=== PATIENT | female | born 1995 | race Hispanic/Latino ===

== ENCOUNTER 2016-10-25 19:33 | Emergency (ER) | payer OTHER ==
[~2016-10-25] VITALS: Ht 157.5 cm; Wt 57.8 kg
[~2016-10-25 19:33] MED LIST: CIPRO500 MG PO; FEROSUL325 MG PO; MAGNESIUM OXID400 MG PO; MYFORTIC360 MG PO; OMEPRAZOLE20 M2 PO; PERCOCET 5/31 TABLET PO; PREDNISOLONE5 MG PO; PROGRAF1 MG PO; TYLENOL EXTRA500 MG PO; VITAMIN D400 UNIT PO; ZOFRAN4 MG PO
[2016-10-25] MEDS ORDERED: FLONASE16 G1 BOTH NARES (20:32)
[2016-10-25] MEDS ORDERED: CEFDINIR300 MG PO (20:32)
[2016-10-25] MEDS ORDERED: PREDNISONE20 MG PO (20:34)
[2016-10-25 21:25] VITALS: BP 123/76
== END 2016-10-25 21:27 | disposition home or self-care (01) ==
LOC: EME 19:33
DX: H66.92 Otitis media, unspecified, left ear (principal); J32.9 Chronic sinusitis, unspecified; J40 Bronchitis, not specified as acute or chronic; J45.909 Unspecified asthma, uncomplicated; Z94.0 Kidney transplant status
CPT/HCPCS: 94640; 94664; 99281; 99285; J7512

== ENCOUNTER 2016-12-06 19:20 | Emergency (ER) | payer OTHER ==
[~2016-12-06] VITALS: Ht 157.5 cm; Wt 55.8 kg
[~2016-12-06 19:20] MED LIST changes: +CEFDINIR300 MG PO; +FLONASE16 G1 BOTH NARES; +PREDNISONE20 MG PO
[2016-12-06] MEDS ORDERED: PREDNISONE5 MG PO (19:58)
[2016-12-06] MEDS ORDERED: MAGNESIUM400 M1 PO (19:59)
[2016-12-06] MEDS ORDERED: MYCOPHENOLIC A360 MG PO (20:00)
[2016-12-06] MEDS ORDERED: TACROLIMUS ANHYD1 MG PO ×2 (20:01)
[2016-12-06] MEDS ORDERED: AMOXICILLIN875 MG PO (20:02)
[2016-12-06 20:06] LABS: HEMATOCRIT 37.1 % (36.0-46.0); MCH 28.6 PG (29.0-34.0); MCHC 33.4 G/DL (30.0-36.0); MCV 85.5 FL (83-99); MEAN PLAT.VOLUME 9.9 uM^3 (9.5-12.4); PLATELET COUNT 252 K/uL (156-360); RBC DIS.WIDTH-CV 12.4 % (11.8-14.6); RBC DIS.WIDTH-SD 38.6 % (39-53); RED BLOOD COUNT 4.34 M/uL (3.80-5.20)
[2016-12-06 20:07] LABS: WHITE BLOOD COUNT 12.3 K/uL (4.1-10.2)
[2016-12-06 20:16] LABS: CHLORIDE 104 mEq/L (99-109); POTASSIUM 3.8 mEq/L (3.7-5.4); SODIUM 137 mEq/L (136-147)
[2016-12-06 20:18] LABS: GLUCOSE 105 mg/dL (70-99)
[2016-12-06 20:19] LABS: ANION GAP 10 MEQ/L (2-14)
[2016-12-06 20:22] LABS: GFR ESTIMATE (CALCULATED) > 59 mL/min/
[2016-12-06 20:23] LABS: UREA NITROGEN (BUN) 16 mg/dL (9-23)
[2016-12-06] MEDS ORDERED: AUGMENTIN875 MG PO (21:24)
[2016-12-06 21:35] VITALS: BP 109/76
== END 2016-12-06 21:36 | disposition home or self-care (01) ==
LOC: EME 19:20
PROVIDERS: Physician Assistant
DX: T81.4XXA Infection following a procedure, initial encounter (principal); K04.7 Periapical abscess without sinus; G89.18 Other acute postprocedural pain; Z98.818 Other dental procedure status; Z94.0 Kidney transplant status; Z79.52 Long term (current) use of systemic steroids
CPT/HCPCS: 70486; 80048; 85027; 87040; 99281; 99284; J0295; J7030; J7050

== ENCOUNTER 2017-04-30 20:44 | Inpatient (IN) | payer BC ==
[~2017-04-30] VITALS: Ht 167.6 cm; Wt 65.5 kg
[~2017-04-30 20:44] MED LIST changes: +AMOXICILLIN875 MG PO; +AUGMENTIN875 MG PO; +MAGNESIUM400 M1 PO; +MYCOPHENOLIC A360 MG PO; +PREDNISONE5 MG PO; +TACROLIMUS ANHYD1 MG PO
[2017-04-30 21:42] LABS: HEMATOCRIT 33.5 % (36.0-46.0); MCH 28.5 PG (29.0-34.0); MCV 83.8 FL (83-99); MEAN PLAT.VOLUME 10.3 uM^3 (9.5-12.4); PLATELET COUNT 237 K/uL (156-360); RBC DIS.WIDTH-CV 13.5 % (11.8-14.6); RBC DIS.WIDTH-SD 41.4 % (39-53); WHITE BLOOD COUNT 10.8 K/uL (4.1-10.2)
[2017-04-30 21:58] LABS: LIPASE 37 U/L (1.0-51.0)
[2017-04-30 22:05] LABS: QUANTITATIVE HCG < 4.0 MIU/ML
[2017-04-30 23:47] LABS: CHLORIDE 108 mEq/L (99-109); POTASSIUM 3.9 mEq/L (3.7-5.4); SODIUM 138 mEq/L (136-147)
[2017-04-30 23:49] LABS: GLUCOSE 96 mg/dL (70-99)
[2017-04-30 23:50] LABS: ANION GAP 12 MEQ/L (2-14)
[2017-04-30 23:51] LABS: TOTAL BILIRUBIN 0.5 mg/dL (0.0-1.0)
[2017-04-30 23:52] LABS: ALKALINE PHOSPHATASE 60 IU/L (3-129)
[2017-04-30 23:53] LABS: GFR ESTIMATE (CALCULATED) 50 mL/min/
[2017-04-30 23:54] LABS: UREA NITROGEN (BUN) 26 mg/dL (9-23)
[2017-05-01 00:16] LABS: INFLUENZA A VIRAL ANTIGEN NEGATIVE; INFLUENZA B VIRAL ANTIGEN NEGATIVE
[2017-05-01 01:56] LABS: ADD MIUA? YES; BILIRUBIN NEGATIVE; BLOOD NEGATIVE; COLOR YELLOW ((YELLOW)); GLUCOSE (STRIP) NEGATIVE; KETONES NEGATIVE; LEUKOCYTES LARGE; NITRITE NEGATIVE; PROTEIN (STRIP) NEGATIVE; SPECIFIC GRAVITY 1.017 (1.000-1.030); UROBILINOGEN 0.2 MG/DL (0.2-1.0)
[2017-05-01 02:06] LABS: BACTERIA NONE SEEN /HPF; EPITHELIAL CELLS RARE /HPF; MUCUS TRACE /LPF; UCUL ADDED? YES; WHITE BLOOD CELLS TNTC /HPF (0-5)
[2017-05-01 06:11] VITALS: BP 110/68
[2017-05-01 08:15] VITALS: BP 100/53
[2017-05-01 09:01] LABS: EOSINOPHIL (%) 0.1 % (0-5); IMMATURE GRANULOCYTE (%) 0.2 % (0.0-0.7); INSTRUMENT ABS NEUTROPHIL CT 7.6 K/uL; LYMPHOCYTE COUNT 0.9 K/uL (1.0-2.8); MCH 27.7 PG (29.0-34.0); MCHC 32.6 G/DL (30.0-36.0); MCV 85.2 FL (83-99); MONOCYTE (%) 4.1 % (3-12); MONOCYTE COUNT 0.4 K/uL (0-0.8); NEUTROPHIL (%) 85.5 % (45-76); NEUTROPHIL COUNT 7.6 K/uL (1.8-6.4); PLATELET COUNT 174 K/uL (156-360); RBC DIS.WIDTH-CV 13.5 % (11.8-14.6); RBC DIS.WIDTH-SD 42.8 % (39-53); RED BLOOD COUNT 3.64 M/uL (3.80-5.20); WHITE BLOOD COUNT 8.8 K/uL (4.1-10.2)
[2017-05-01 09:28] LABS: ANION GAP 9 MEQ/L (2-14); CHLORIDE 110 MEQ/L (99-109); GFR ESTIMATE (CALCULATED) 55 mL/min/; GLUCOSE 128 mg/dL (70-99); POTASSIUM 3.8 MEQ/L (3.7-5.4); SAMPLE HEMOLYSIS CHECK 0; SAMPLE ICTERIC CHECK 0; SAMPLE LIPEMIA CHECK 0; SODIUM 137 MEQ/L (136-147); UREA NITROGEN (BUN) 21 mg/dL (9-23)
[2017-05-01 12:00] VITALS: BP 107/68
[2017-05-01 15:10] VITALS: BP 101/59
[2017-05-01 19:38] VITALS: BP 112/71
[2017-05-02] VITALS (7 sets, daily range): BP systolic 109–119; BP diastolic 60–98
[2017-05-02 05:28] LABS: EOSINOPHIL COUNT 0.1 K/uL (0-0.3); IMMATURE GRANULOCYTE (%) 0.4 % (0.0-0.7); INSTRUMENT ABS NEUTROPHIL CT 5.9 K/uL; MCH 27.4 PG (29.0-34.0); MCHC 32.1 G/DL (30.0-36.0); MCV 85.1 FL (83-99); MEAN PLAT.VOLUME 9.9 uM^3 (9.5-12.4); MONOCYTE (%) 12.6 % (3-12); MONOCYTE COUNT 1.3 K/uL (0-0.8); NEUTROPHIL (%) 56.6 % (45-76); NEUTROPHIL COUNT 5.9 K/uL (1.8-6.4); PLATELET COUNT 170 K/uL (156-360); RBC DIS.WIDTH-CV 13.6 % (11.8-14.6); RBC DIS.WIDTH-SD 42.7 % (39-53); RED BLOOD COUNT 3.29 M/uL (3.80-5.20); WHITE BLOOD COUNT 10.5 K/uL (4.1-10.2)
[2017-05-02 05:49] LABS: ANION GAP 8 MEQ/L (2-14); CHLORIDE 111 MEQ/L (99-109); GFR ESTIMATE (CALCULATED) > 59 mL/min/; GLUCOSE 99 mg/dL (70-99); POTASSIUM 3.6 MEQ/L (3.7-5.4); SAMPLE HEMOLYSIS CHECK 0; SAMPLE ICTERIC CHECK 0; SAMPLE LIPEMIA CHECK 0; SODIUM 139 MEQ/L (136-147); UREA NITROGEN (BUN) 17 mg/dL (9-23)
[2017-05-02 23:21] LABS: ADD MIUA? YES; BILIRUBIN NEGATIVE; BLOOD LARGE; COLOR YELLOW ((YELLOW)); GLUCOSE (STRIP) NEGATIVE; KETONES NEGATIVE; LEUKOCYTES NEGATIVE; NITRITE NEGATIVE; PROTEIN (STRIP) NEGATIVE; SPECIFIC GRAVITY 1.014 (1.000-1.030); UROBILINOGEN 0.2 MG/DL (0.2-1.0)
[2017-05-02 23:23] LABS: BACTERIA RARE /HPF; EPITHELIAL CELLS RARE /HPF; MUCUS TRACE /LPF; RED BLOOD CELLS TNTC /HPF (0-5); UCUL ADDED? YES; WHITE BLOOD CELLS 0-5 /HPF (0-5)
[2017-05-03 03:23] VITALS: BP 115/76
[2017-05-03 05:54] LABS: BASOPHIL COUNT 0.1 K/uL (0-0.1); EOSINOPHIL (%) 2.4 % (0-5); EOSINOPHIL COUNT 0.2 K/uL (0-0.3); HEMATOCRIT 28.6 % (36.0-46.0); IMMATURE GRANULOCYTE (%) 0.2 % (0.0-0.7); INSTRUMENT ABS NEUTROPHIL CT 5.5 K/uL; MCH 27.6 PG (29.0-34.0); MCHC 32.5 G/DL (30.0-36.0); MCV 84.9 FL (83-99); MEAN PLAT.VOLUME 9.9 uM^3 (9.5-12.4); MONOCYTE (%) 8.6 % (3-12); MONOCYTE COUNT 0.8 K/uL (0-0.8); NEUTROPHIL (%) 56.9 % (45-76); NEUTROPHIL COUNT 5.5 K/uL (1.8-6.4); PLATELET COUNT 205 K/uL (156-360); RBC DIS.WIDTH-CV 13.6 % (11.8-14.6); RBC DIS.WIDTH-SD 42.6 % (39-53); RED BLOOD COUNT 3.37 M/uL (3.80-5.20); WHITE BLOOD COUNT 9.6 K/uL (4.1-10.2)
[2017-05-03 06:17] LABS: ANION GAP 7 MEQ/L (2-14); CHLORIDE 109 MEQ/L (99-109); GFR ESTIMATE (CALCULATED) > 59 mL/min/; GLUCOSE 96 mg/dL (70-99); POTASSIUM 3.9 MEQ/L (3.7-5.4); SAMPLE HEMOLYSIS CHECK 0; SAMPLE ICTERIC CHECK 0; SAMPLE LIPEMIA CHECK 0; SODIUM 136 MEQ/L (136-147); UREA NITROGEN (BUN) 15 mg/dL (9-23)
[2017-05-03 07:12] VITALS: BP 113/73
[2017-05-03] MEDS ORDERED: CIPRO500 MG PO (12:00)
== END 2017-05-03 13:16 | disposition home or self-care (01) | DRG 872 ==
LOC: EME 20:44 → CANRESERV 05-01 05:18 → ENRESERV 05-01 05:18 → EDOF 05-01 05:21 → ENRESERV 05-01 05:21 → 4EAST 05-01 06:03 → ENRESERV 05-02 10:13 → 2EASTP 05-02 14:40
PROVIDERS: Hospitalist; Internal Medicine; Nurse Practitioner Family
DX: A41.9 Sepsis, unspecified organism (principal); N39.0 Urinary tract infection, site not specified; N17.9 Acute kidney failure, unspecified; Z94.0 Kidney transplant status
CPT/HCPCS: 71020; 76705; 80048; 80053; 80197 90; 81003; 83605; 83690; 84702; 85025; 85027; 87040; 87086; 87502; 87651 90; 99281; 99285; J0692; J1644; J1720; J1956; J7030; J7050; J7120; J7507; J7512; J7518

== ENCOUNTER 2017-09-26 22:12 | Inpatient (IN) | payer BC ==
[~2017-09-26] VITALS: Ht 157.5 cm; Wt 63.0 kg
[2017-09-26 22:44] LABS: APPEARANCE CLEAR ((CLEAR)); BILIRUBIN NEGATIVE; BLOOD NEGATIVE; COLOR STRAW ((YELLOW)); GLUCOSE (STRIP) NEGATIVE; KETONES 5; LEUKOCYTES NEGATIVE; NITRITE NEGATIVE; PROTEIN (STRIP) 100; SPECIFIC GRAVITY 1.008 (1.000-1.030); UROBILINOGEN 0.2 MG/DL (0.2-1.0)
[2017-09-26 22:47] LABS: HEMATOCRIT 28.4 % (36.0-46.0); HEMOGLOBIN 9.5 G/DL (11.9-15.5); MCH 28.6 PG (29.0-34.0); MCHC 33.5 G/DL (30.0-36.0); MCV 85.5 FL (83-99); PLATELET COUNT 234 K/uL (156-360); RBC DIS.WIDTH-CV 13.1 % (11.8-14.6); RBC DIS.WIDTH-SD 40.5 % (39-53); RED BLOOD COUNT 3.32 M/uL (3.80-5.20); WHITE BLOOD COUNT 7.1 K/uL (4.1-10.2)
[2017-09-26 22:49] LABS: BACTERIA RARE /HPF; EPITHELIAL CELLS 1+ /HPF; MUCUS NONE SEEN /LPF; RED BLOOD CELLS 0-5 /HPF (0-5); UCUL ADDED? YES
[2017-09-26 22:59] LABS: CHLORIDE 112 mEq/L (99-109); POTASSIUM 4.5 mEq/L (3.7-5.4); SODIUM 137 mEq/L (136-147)
[2017-09-26 23:01] LABS: GLUCOSE 83 mg/dL (70-99); TOTAL PROTEIN 7.5 g/dL (6.4-8.3)
[2017-09-26 23:03] LABS: TOTAL BILIRUBIN 0.4 mg/dL (0.0-1.0)
[2017-09-26 23:05] LABS: ALKALINE PHOSPHATASE 59 IU/L (3-129); CREATININE 5.1 mg/dL (0.6-1.3); GFR ESTIMATE (CALCULATED) 11 mL/min/
[2017-09-26 23:06] LABS: UREA NITROGEN (BUN) 63 mg/dL (9-23)
[2017-09-26 23:07] LABS: AST (GOT) 15 IU/L (2-34)
[2017-09-26 23:08] LABS: ALT (GPT) 9 IU/L (3-49)
[2017-09-26 23:13] LABS: QUANTITATIVE HCG < 4.0 MIU/ML
[2017-09-27] MEDS ORDERED: RANITIDINE HCL150 MG PO (00:01)
[2017-09-27 03:13] VITALS: BP 131/80
[2017-09-27 07:33] LABS: ALBUMIN 3.4 G/DL (3.2-4.8); CHLORIDE 111 MEQ/L (99-109); CREATININE 5.1 MG/DL (0.6-1.3); GFR ESTIMATE (CALCULATED) 11 mL/min/; GLUCOSE 83 mg/dL (70-99); MAGNESIUM 1.9 mg/dl (1.3-2.7); PHOSPHORUS 6.2 mg/dL (2.5-4.9); POTASSIUM 4.3 MEQ/L (3.7-5.4); SODIUM 137 MEQ/L (136-147); UREA NITROGEN (BUN) 63 mg/dL (9-23)
[2017-09-27 08:33] VITALS: BP 119/79
[2017-09-27 15:56] VITALS: BP 110/70
[2017-09-27 19:33] VITALS: BP 114/68
[2017-09-27 23:46] VITALS: BP 114/72
[2017-09-28 03:23] VITALS: BP 111/70
[2017-09-28 06:59] LABS: BASOPHIL (%) 0.9 % (0-1); BASOPHIL COUNT 0.1 K/uL (0-0.1); EOSINOPHIL (%) 3.6 % (0-5); EOSINOPHIL COUNT 0.3 K/uL (0-0.3); HEMOGLOBIN 8.1 G/DL (11.9-15.5); IMMATURE GRANULOCYTE (%) 0.1 % (0.0-0.7); LYMPHOCYTE (%) 37.5 % (15-42); LYMPHOCYTE COUNT 2.6 K/uL (1.0-2.8); MCH 27.7 PG (29.0-34.0); MCHC 32.4 G/DL (30.0-36.0); MCV 85.6 FL (83-99); MONOCYTE (%) 8.2 % (3-12); MONOCYTE COUNT 0.6 K/uL (0-0.8); NEUTROPHIL (%) 49.7 % (45-76); NEUTROPHIL COUNT 3.4 K/uL (1.8-6.4); PLATELET COUNT 219 K/uL (156-360); RBC DIS.WIDTH-CV 13.1 % (11.8-14.6); RBC DIS.WIDTH-SD 41.1 % (39-53); RED BLOOD COUNT 2.92 M/uL (3.80-5.20); WHITE BLOOD COUNT 6.9 K/uL (4.1-10.2)
[2017-09-28 07:20] VITALS: BP 123/80
[2017-09-28 07:20] LABS: ALBUMIN 3.3 G/DL (3.2-4.8); CHLORIDE 115 MEQ/L (99-109); CREATININE 5.8 MG/DL (0.6-1.3); GFR ESTIMATE (CALCULATED) 10 mL/min/; GLUCOSE 87 mg/dL (70-99); PHOSPHORUS 4.9 mg/dL (2.5-4.9); POTASSIUM 4.4 MEQ/L (3.7-5.4); SODIUM 140 MEQ/L (136-147); UREA NITROGEN (BUN) 68 mg/dL (9-23)
[2017-09-28 09:02] LABS: IMM.RETIC FRACTION 3.3 % (3-19); RETIC HGB EQUIVALENT 30.7 (28-36); RETICULOCYTE COUNT 0.5 % (0.5-1.8)
[2017-09-28 09:05] LABS: FERRITIN 61 NG/ML (10-291)
[2017-09-28 10:48] LABS: IRON 30 MCG/DL (35-150); TRANSFERRIN (TIBC) 160.7 mg/dL (215-380); TRANSFERRIN SATUR. 19 % (20-55)
[2017-09-28 11:30] VITALS: BP 133/84
[2017-09-28 12:21] LABS: FOLIC ACID (FOLATE) 9.7 NG/ML (5.0-22.0)
[2017-09-28 15:31] VITALS: BP 132/74
[2017-09-28 19:17] VITALS: BP 132/84
[2017-09-29] VITALS: BP 126/80
[2017-09-29 03:55] VITALS: BP 126/78
[2017-09-29 07:35] VITALS: BP 134/89
[2017-09-29 08:12] LABS: BASOPHIL (%) 1.3 % (0-1); BASOPHIL COUNT 0.1 K/uL (0-0.1); EOSINOPHIL (%) 3.8 % (0-5); EOSINOPHIL COUNT 0.2 K/uL (0-0.3); HEMATOCRIT 23.5 % (36.0-46.0); HEMOGLOBIN 7.9 G/DL (11.9-15.5); IMMATURE GRANULOCYTE (%) 0.2 % (0.0-0.7); LYMPHOCYTE (%) 45.6 % (15-42); LYMPHOCYTE COUNT 2.8 K/uL (1.0-2.8); MCH 27.8 PG (29.0-34.0); MCHC 33.6 G/DL (30.0-36.0); MCV 82.7 FL (83-99); MONOCYTE (%) 10.1 % (3-12); MONOCYTE COUNT 0.6 K/uL (0-0.8); NEUTROPHIL COUNT 2.4 K/uL (1.8-6.4); PLATELET COUNT 215 K/uL (156-360); RBC DIS.WIDTH-SD 39.4 % (39-53); RED BLOOD COUNT 2.84 M/uL (3.80-5.20)
[2017-09-29 08:32] LABS: ALBUMIN 3.3 G/DL (3.2-4.8); CHLORIDE 109 MEQ/L (99-109); CREATININE 5.5 MG/DL (0.6-1.3); GFR ESTIMATE (CALCULATED) 10 mL/min/; GLUCOSE 99 mg/dL (70-99); PHOSPHORUS 5.1 mg/dL (2.5-4.9); SODIUM 138 MEQ/L (136-147); UREA NITROGEN (BUN) 67 mg/dL (9-23)
[2017-09-29 08:35] LABS: POTASSIUM 3.3 MEQ/L (3.7-5.4)
[2017-09-29 15:47] VITALS: BP 141/86
[2017-09-30 00:39] VITALS: BP 136/94
[2017-09-30 06:18] LABS: BASOPHIL (%) 0.9 % (0-1); BASOPHIL COUNT 0.1 K/uL (0-0.1); EOSINOPHIL (%) 2.6 % (0-5); EOSINOPHIL COUNT 0.2 K/uL (0-0.3); HEMATOCRIT 24.1 % (36.0-46.0); HEMOGLOBIN 8.2 G/DL (11.9-15.5); IMMATURE GRANULOCYTE (%) 0.3 % (0.0-0.7); LYMPHOCYTE (%) 45.8 % (15-42); LYMPHOCYTE COUNT 3.1 K/uL (1.0-2.8); MCH 28.2 PG (29.0-34.0); MCV 82.8 FL (83-99); MONOCYTE COUNT 0.6 K/uL (0-0.8); NEUTROPHIL (%) 41.4 % (45-76); NEUTROPHIL COUNT 2.8 K/uL (1.8-6.4); PLATELET COUNT 226 K/uL (156-360); RBC DIS.WIDTH-SD 39.2 % (39-53); RED BLOOD COUNT 2.91 M/uL (3.80-5.20); WHITE BLOOD COUNT 6.7 K/uL (4.1-10.2)
[2017-09-30 06:53] LABS: APPEARANCE SL.HAZY ((CLEAR)); BILIRUBIN NEGATIVE; BLOOD NEGATIVE; COLOR STRAW ((YELLOW)); GLUCOSE (STRIP) NEGATIVE; KETONES NEGATIVE; LEUKOCYTES SMALL; NITRITE NEGATIVE; PROTEIN (STRIP) 30; SPECIFIC GRAVITY 1.005 (1.000-1.030); UROBILINOGEN 0.2 MG/DL (0.2-1.0)
[2017-09-30 06:54] LABS: ALBUMIN 3.1 G/DL (3.2-4.8); CHLORIDE 102 MEQ/L (99-109); CREATININE 6.3 MG/DL (0.6-1.3); GFR ESTIMATE (CALCULATED) 9 mL/min/; GLUCOSE 87 mg/dL (70-99); PHOSPHORUS 5.2 mg/dL (2.5-4.9); POTASSIUM 3.4 MEQ/L (3.7-5.4); SODIUM 142 MEQ/L (136-147); UREA NITROGEN (BUN) 67 mg/dL (9-23)
[2017-09-30 07:05] VITALS: BP 136/83
[2017-09-30 07:12] LABS: BACTERIA RARE /HPF; EPITHELIAL CELLS 1+ /HPF; MUCUS NONE SEEN /LPF; RED BLOOD CELLS 0-5 /HPF (0-5); WHITE BLOOD CELLS 15-20 /HPF (0-5)
[2017-09-30 09:33] LABS: UR CREATININE CONCENTRATION 45.1 MG/DL
[2017-09-30 11:38] LABS: STOOL OCCULT BLD 1ST SPECIMEN NEGATIVE
[2017-09-30 16:34] VITALS: BP 149/92
[2017-09-30 23:32] VITALS: BP 125/87
[2017-10-01 06:22] LABS: HEMATOCRIT 27.5 % (36.0-46.0); MCH 27.4 PG (29.0-34.0); MCHC 32.7 G/DL (30.0-36.0); MCV 83.6 FL (83-99); PLATELET COUNT 263 K/uL (156-360); RBC DIS.WIDTH-CV 12.6 % (11.8-14.6); RBC DIS.WIDTH-SD 38.6 % (39-53); RED BLOOD COUNT 3.29 M/uL (3.80-5.20); WHITE BLOOD COUNT 5.5 K/uL (4.1-10.2)
[2017-10-01 06:53] LABS: CHLORIDE 104 MEQ/L (99-109); CREATININE 5.9 MG/DL (0.6-1.3); GFR ESTIMATE (CALCULATED) 10 mL/min/; SODIUM 138 MEQ/L (136-147); UREA NITROGEN (BUN) 60 mg/dL (9-23)
[2017-10-01 06:56] LABS: GLUCOSE 110 mg/dL (70-99); POTASSIUM 4.4 MEQ/L (3.7-5.4)
[2017-10-01 09:23] VITALS: BP 130/80
[2017-10-01 15:40] VITALS: BP 130/72
== END 2017-10-01 18:54 | disposition short-term general hospital (02) | DRG 699 ==
LOC: EME 22:12 → 2EAST 09-27 01:25 → EDOF 09-27 01:25 → ENRESERV 09-27 01:26 → 2EAST 09-27 02:47
PROVIDERS: Family Medicine; Hospitalist; Internal Medicine; Internal Medicine Nephrology
DX: T86.12 Kidney transplant failure (principal); N17.9 Acute kidney failure, unspecified; N13.30 Unspecified hydronephrosis; Z94.0 Kidney transplant status; R55 Syncope and collapse; E87.2 Acidosis; E87.6 Hypokalemia; D64.9 Anemia, unspecified; Z79.52 Long term (current) use of systemic steroids; Y83.0 Surgical operation with transplant of whole organ as the cause of abnormal reaction of the patient, or of later complication, without mention of misadventure at the time of the procedure
CPT/HCPCS: 76776; 80048; 80053; 80069; 80197 90; 81003; 82272; 82330; 82570; 82607; 82728; 82746; 83540; 83735; 83935; 84156; 84300; 84466; 84702; 85025; 85027; 85046; 87086; 93005; 99281; 99285; J1644; J1756; J2920; J7030; J7050; J7070; J7507; J7512; J7518

== ENCOUNTER 2017-10-28 15:23 | Inpatient (IN) | payer BC ==
[~2017-10-28] VITALS: Ht 157.5 cm; Wt 59.7 kg
[~2017-10-28 15:23] MED LIST changes: +DELTASONE20 M1 PO; -PREDNISONE5 MG PO; +RANITIDINE HCL150 MG PO
[2017-10-28 15:56] LABS: HEMATOCRIT 24.3 % (36.0-46.0); HEMOGLOBIN 7.9 G/DL (11.9-15.5); MCHC 32.5 G/DL (30.0-36.0); MCV 86.2 FL (83-99); PLATELET COUNT 216 K/uL (156-360); RBC DIS.WIDTH-CV 14.2 % (11.8-14.6); RBC DIS.WIDTH-SD 43.5 % (39-53); RED BLOOD COUNT 2.82 M/uL (3.80-5.20); WHITE BLOOD COUNT 7.4 K/uL (4.1-10.2)
[2017-10-28 16:05] LABS: ALBUMIN 4.5 g/dL (3.2-4.8)
[2017-10-28 16:06] LABS: CHLORIDE 114 mEq/L (99-109); POTASSIUM 4.7 mEq/L (3.7-5.4); SODIUM 137 mEq/L (136-147)
[2017-10-28 16:08] LABS: GLUCOSE 124 mg/dL (70-99); TOTAL PROTEIN 7.3 g/dL (6.4-8.3)
[2017-10-28 16:10] LABS: TOTAL BILIRUBIN 0.3 mg/dL (0.0-1.0)
[2017-10-28 16:11] LABS: ALKALINE PHOSPHATASE 55 IU/L (3-129)
[2017-10-28 16:12] LABS: CREATININE 4.9 mg/dL (0.6-1.3); GFR ESTIMATE (CALCULATED) 12 mL/min/
[2017-10-28 16:13] LABS: AST (GOT) 11 IU/L (2-34); UREA NITROGEN (BUN) 66 mg/dL (9-23)
[2017-10-28 16:15] LABS: ALT (GPT) 9 IU/L (3-49)
[2017-10-28 16:21] LABS: QUANTITATIVE HCG < 4.0 MIU/ML
[2017-10-28 16:30] LABS: APPEARANCE SL.HAZY ((CLEAR)); BILIRUBIN NEGATIVE; BLOOD NEGATIVE; COLOR YELLOW ((YELLOW)); GLUCOSE (STRIP) NEGATIVE; KETONES NEGATIVE; LEUKOCYTES MODERATE; NITRITE NEGATIVE; PROTEIN (STRIP) NEGATIVE; SPECIFIC GRAVITY 1.012 (1.000-1.030); UROBILINOGEN 0.2 MG/DL (0.2-1.0)
[2017-10-28 16:49] LABS: BACTERIA RARE /HPF; EPITHELIAL CELLS RARE /HPF; MUCUS TRACE /LPF; RED BLOOD CELLS 0-5 /HPF (0-5); UCUL ADDED? YES
[2017-10-28 17:53] LABS: DIRECT BILIRUBIN 0.2 mg/dL (0.0-0.3)
[2017-10-28 17:54] LABS: LIPASE 114 U/L (1.0-51.0)
[2017-10-28] MEDS ORDERED: AMLODIPINE BESYL5 MG PO (21:11)
[2017-10-28] MEDS ORDERED: MYCOSTATIN 100,60 ML PO (21:11)
[2017-10-28] MEDS ORDERED: VALCYTE450 MG PO (21:11)
[2017-10-28] MEDS ORDERED: B-COMPLEX W/VI1 EAC1 PO (21:11)
[2017-10-28] MEDS ORDERED: ERGOCALCIF50000 UNIT PO (21:12)
[2017-10-28] MEDS ORDERED: NABI650T PO (21:12)
[2017-10-28] MEDS ORDERED: BACTRIM,SEPT1 TABLE1 PO (21:12)
[2017-10-28 21:27] LABS: IRON 94 MCG/DL (35-150); TRANSFERRIN (TIBC) 207.3 mg/dL (215-380); TRANSFERRIN SATUR. 45 % (20-55)
[2017-10-29 06:41] LABS: HEMATOCRIT 18.8 % (36.0-46.0); MCH 28.6 PG (29.0-34.0); MCV 83.9 FL (83-99); PLATELET COUNT 167 K/uL (156-360); RBC DIS.WIDTH-SD 42.9 % (39-53); WHITE BLOOD COUNT 6.4 K/uL (4.1-10.2)
[2017-10-29 06:42] LABS: HEMOGLOBIN 6.4 G/DL (11.9-15.5); RED BLOOD COUNT 2.24 M/uL (3.80-5.20)
[2017-10-29 12:15] VITALS: BP 141/96
[2017-10-29 13:21] LABS: FOLIC ACID (FOLATE) 15.6 NG/ML (5.0-22.0)
[2017-10-29 15:00] VITALS: BP 120/72
[2017-10-29 15:24] LABS: CHLORIDE 112 MEQ/L (99-109); CREATININE 4.1 MG/DL (0.6-1.3); GFR ESTIMATE (CALCULATED) 15 mL/min/; GLUCOSE 93 mg/dL (70-99); POTASSIUM 3.9 MEQ/L (3.7-5.4); SODIUM 139 MEQ/L (136-147); UREA NITROGEN (BUN) 60 mg/dL (9-23)
[2017-10-29 15:24] LABS: ALBUMIN 3.8 G/DL (3.2-4.8); CHLORIDE 113 MEQ/L (99-109); CREATININE 4.1 MG/DL (0.6-1.3); GFR ESTIMATE (CALCULATED) 15 mL/min/; GLUCOSE 98 mg/dL (70-99); PHOSPHORUS 3.9 mg/dL (2.5-4.9); SODIUM 139 MEQ/L (136-147); UREA NITROGEN (BUN) 59 mg/dL (9-23)
[2017-10-29 15:25] LABS: POTASSIUM 3.7 MEQ/L (3.7-5.4)
[2017-10-29 20:16] VITALS: BP 111/73
[2017-10-29 23:37] VITALS: BP 118/79
[2017-10-30] VITALS (7 sets, daily range): BP systolic 113–124; BP diastolic 74–85
[2017-10-30 06:11] LABS: BASOPHIL (%) 0.2 % (0-1); EOSINOPHIL (%) 2.5 % (0-5); EOSINOPHIL COUNT 0.1 K/uL (0-0.3); HEMATOCRIT 18.2 % (36.0-46.0); IMMATURE GRANULOCYTE (%) 0.4 % (0.0-0.7); LYMPHOCYTE (%) 31.3 % (15-42); LYMPHOCYTE COUNT 1.6 K/uL (1.0-2.8); MCH 27.3 PG (29.0-34.0); MCV 82.7 FL (83-99); MONOCYTE (%) 6.5 % (3-12); MONOCYTE COUNT 0.3 K/uL (0-0.8); NEUTROPHIL (%) 59.1 % (45-76); NEUTROPHIL COUNT 3.1 K/uL (1.8-6.4); PLATELET COUNT 171 K/uL (156-360); RBC DIS.WIDTH-CV 14.2 % (11.8-14.6); RBC DIS.WIDTH-SD 42.3 % (39-53); WHITE BLOOD COUNT 5.2 K/uL (4.1-10.2)
[2017-10-30 06:32] LABS: CHLORIDE 109 MEQ/L (99-109); CREATININE 3.7 MG/DL (0.6-1.3); GFR ESTIMATE (CALCULATED) 16 mL/min/; GLUCOSE 79 mg/dL (70-99); MAGNESIUM 1.4 mg/dl (1.3-2.7); PHOSPHORUS 3.9 mg/dL (2.5-4.9); POTASSIUM 3.5 MEQ/L (3.7-5.4); SODIUM 139 MEQ/L (136-147); UREA NITROGEN (BUN) 54 mg/dL (9-23)
[2017-10-31] VITALS (9 sets, daily range): BP systolic 119–137; BP diastolic 74–92
[2017-10-31 06:38] LABS: BASOPHIL (%) 0.2 % (0-1); EOSINOPHIL (%) 2.1 % (0-5); EOSINOPHIL COUNT 0.1 K/uL (0-0.3); HEMATOCRIT 17.8 % (36.0-46.0); HEMOGLOBIN 5.9 G/DL (11.9-15.5); IMMATURE GRANULOCYTE (%) 0.4 % (0.0-0.7); LYMPHOCYTE (%) 32.8 % (15-42); LYMPHOCYTE COUNT 1.6 K/uL (1.0-2.8); MCH 27.8 PG (29.0-34.0); MCHC 33.1 G/DL (30.0-36.0); MONOCYTE (%) 8.1 % (3-12); MONOCYTE COUNT 0.4 K/uL (0-0.8); NEUTROPHIL (%) 56.4 % (45-76); NEUTROPHIL COUNT 2.7 K/uL (1.8-6.4); PLATELET COUNT 155 K/uL (156-360); RBC DIS.WIDTH-CV 14.1 % (11.8-14.6); RBC DIS.WIDTH-SD 43.4 % (39-53); RED BLOOD COUNT 2.12 M/uL (3.80-5.20); WHITE BLOOD COUNT 4.8 K/uL (4.1-10.2)
[2017-10-31 07:00] LABS: CHLORIDE 103 MEQ/L (99-109); CREATININE 3.3 MG/DL (0.6-1.3); GFR ESTIMATE (CALCULATED) 19 mL/min/; GLUCOSE 92 mg/dL (70-99); MAGNESIUM 1.3 mg/dl (1.3-2.7); PHOSPHORUS 3.2 mg/dL (2.5-4.9); POTASSIUM 3.9 MEQ/L (3.7-5.4); SODIUM 138 MEQ/L (136-147); UREA NITROGEN (BUN) 44 mg/dL (9-23)
[2017-11-01] VITALS (9 sets, daily range): BP systolic 129–159; BP diastolic 76–97
[2017-11-01 05:15] LABS: BASOPHIL (%) 0.2 % (0-1); EOSINOPHIL COUNT 0.1 K/uL (0-0.3); HEMATOCRIT 20.9 % (36.0-46.0); HEMOGLOBIN 7.1 G/DL (11.9-15.5); IMMATURE GRANULOCYTE (%) 0.3 % (0.0-0.7); LYMPHOCYTE COUNT 1.6 K/uL (1.0-2.8); MCH 28.6 PG (29.0-34.0); MCV 84.3 FL (83-99); MONOCYTE (%) 8.6 % (3-12); MONOCYTE COUNT 0.5 K/uL (0-0.8); NEUTROPHIL (%) 63.9 % (45-76); PLATELET COUNT 158 K/uL (156-360); RBC DIS.WIDTH-CV 13.9 % (11.8-14.6); RBC DIS.WIDTH-SD 42.1 % (39-53); RED BLOOD COUNT 2.48 M/uL (3.80-5.20); WHITE BLOOD COUNT 6.2 K/uL (4.1-10.2)
[2017-11-01 10:07] LABS: CHLORIDE 105 MEQ/L (99-109); POTASSIUM 4.3 MEQ/L (3.7-5.4); SODIUM 138 MEQ/L (136-147)
[2017-11-01 10:12] LABS: CREATININE 3.4 MG/DL (0.6-1.3); GFR ESTIMATE (CALCULATED) 18 mL/min/; GLUCOSE 85 mg/dL (70-99); UREA NITROGEN (BUN) 41 mg/dL (9-23)
[2017-11-02 00:28] VITALS: BP 124/89
[2017-11-02 03:47] VITALS: BP 124/86
[2017-11-02 05:19] LABS: BASOPHIL (%) 0 % (0-1); EOSINOPHIL (%) 0 % (0-5); HEMATOCRIT 27.3 % (36.0-46.0); HEMOGLOBIN 9.1 G/DL (11.9-15.5); IMMATURE GRANULOCYTE (%) 0.6 % (0.0-0.7); LYMPHOCYTE (%) 8.1 % (15-42); LYMPHOCYTE COUNT 0.6 K/uL (1.0-2.8); MCH 28.1 PG (29.0-34.0); MCHC 33.3 G/DL (30.0-36.0); MCV 84.3 FL (83-99); MONOCYTE (%) 2.9 % (3-12); MONOCYTE COUNT 0.2 K/uL (0-0.8); NEUTROPHIL (%) 88.4 % (45-76); NEUTROPHIL COUNT 6.4 K/uL (1.8-6.4); PLATELET COUNT 175 K/uL (156-360); RED BLOOD COUNT 3.24 M/uL (3.80-5.20); WHITE BLOOD COUNT 7.2 K/uL (4.1-10.2)
[2017-11-02 05:42] LABS: MAGNESIUM 1.3 mg/dl (1.3-2.7)
[2017-11-02 06:55] VITALS: BP 149/94
[2017-11-02 07:37] LABS: CHLORIDE 105 MEQ/L (99-109); CREATININE 3.5 MG/DL (0.6-1.3); GFR ESTIMATE (CALCULATED) 18 mL/min/; SODIUM 135 MEQ/L (136-147); UREA NITROGEN (BUN) 45 mg/dL (9-23)
[2017-11-02 07:41] LABS: GLUCOSE 133 mg/dL (70-99); POTASSIUM 5.2 MEQ/L (3.7-5.4)
[2017-11-02 11:29] VITALS: BP 139/97
[2017-11-02 15:41] VITALS: BP 140/97
[2017-11-02 19:45] VITALS: BP 134/97
[2017-11-03] VITALS: BP 125/83
[2017-11-03 04:00] VITALS: BP 128/80
[2017-11-03 05:12] LABS: BASOPHIL (%) 0.1 % (0-1); EOSINOPHIL (%) 0 % (0-5); HEMATOCRIT 26.5 % (36.0-46.0); IMMATURE GRANULOCYTE (%) 0.7 % (0.0-0.7); LYMPHOCYTE (%) 8.5 % (15-42); LYMPHOCYTE COUNT 0.7 K/uL (1.0-2.8); MCH 28.8 PG (29.0-34.0); MCV 84.9 FL (83-99); MONOCYTE (%) 4.2 % (3-12); MONOCYTE COUNT 0.3 K/uL (0-0.8); NEUTROPHIL (%) 86.5 % (45-76); NEUTROPHIL COUNT 6.6 K/uL (1.8-6.4); PLATELET COUNT 203 K/uL (156-360); RBC DIS.WIDTH-CV 14.1 % (11.8-14.6); RED BLOOD COUNT 3.12 M/uL (3.80-5.20); WHITE BLOOD COUNT 7.7 K/uL (4.1-10.2)
[2017-11-03 05:37] LABS: CHLORIDE 106 MEQ/L (99-109); CREATININE 3.6 MG/DL (0.6-1.3); GFR ESTIMATE (CALCULATED) 17 mL/min/; GLUCOSE 140 mg/dL (70-99); POTASSIUM 4.9 MEQ/L (3.7-5.4); SODIUM 135 MEQ/L (136-147); UREA NITROGEN (BUN) 55 mg/dL (9-23)
[2017-11-03 07:14] VITALS: BP 119/77
[2017-11-03] MEDS ORDERED: PREDNISONE20 MG PO (11:05)
[2017-11-03] MEDS ORDERED: MYCOPHENOLIC A180 MG PO (11:06)
[2017-11-03] MEDS ORDERED: TACROLIMUS ANHYD1 MG PO (11:36)
== END 2017-11-03 12:33 | disposition home or self-care (01) | DRG 683 ==
LOC: EME 15:23 → EDOF 20:42 → 4SOUTH 20:42 → ENRESERV 20:52 → 4SOUTH 10-29 12:07
PROVIDERS: Internal Medicine; Internal Medicine Nephrology; Nurse Practitioner Family
PROC: 30233N1 Transfusion of Nonautologous Red Blood Cells into Peripheral Vein, Percutaneous Approach (ICD-10-PCS; principal; 2017-10-31)
DX: N17.9 Acute kidney failure, unspecified (principal); N39.0 Urinary tract infection, site not specified; E87.2 Acidosis; Z94.0 Kidney transplant status; N18.9 Chronic kidney disease, unspecified; K21.9 Gastro-esophageal reflux disease without esophagitis; I12.9 Hypertensive chronic kidney disease with stage 1 through stage 4 chronic kidney disease, or unspecified chronic kidney disease; E87.6 Hypokalemia; E86.0 Dehydration; D63.1 Anemia in chronic kidney disease; R19.7 Diarrhea, unspecified; Z91.14 Patient's other noncompliance with medication regimen; Z91.19 Patient's noncompliance with other medical treatment and regimen; Z88.6 Allergy status to analgesic agent
CPT/HCPCS: 74176; 80048; 80048 91; 80053; 80069; 80076; 80197 90; 81003; 82248; 82550; 82570; 82607; 82728; 82746; 83540; 83690; 83735; 84100; 84156; 84466; 84702; 85025; 85027; 85651; 86850; 86900; 86901; 86920; 87040; 87086; 87493; 89190; 99281; 99285; J0881; J1644; J1756; J7030; J7050; J7070; J7507; J7512; J7518; P9040

== ENCOUNTER 2017-12-09 11:23 | Inpatient (IN) | payer BC, OTHER ==
[2017-12-09] VITALS (12 sets, daily range): BP systolic 112–142; BP diastolic 57–91
[~2017-12-09] VITALS: Ht 157.5 cm; Wt 66.4 kg
[~2017-12-09 11:23] MED LIST changes: +AMLODIPINE BESYL5 MG PO; +B-COMPLEX W/VI1 EAC1 PO; +BACTRIM,SEPT1 TABLE1 PO; +ERGOCALCIF50000 UNIT PO; +MYCOPHENOLIC A180 MG PO; +MYCOSTATIN 100,60 ML PO; +NABI650T PO; +VALCYTE450 MG PO
[2017-12-09 12:05] LABS: BASOPHIL (%) 0 % (0-1); EOSINOPHIL (%) 0 % (0-5); HEMATOCRIT 19.9 % (36.0-46.0); IMMATURE GRANULOCYTE (%) 1.2 % (0.0-0.7); LYMPHOCYTE (%) 7.9 % (15-42); LYMPHOCYTE COUNT 0.9 K/uL (1.0-2.8); MCH 29.1 PG (29.0-34.0); MCHC 33.7 G/DL (30.0-36.0); MCV 86.5 FL (83-99); MONOCYTE (%) 5.9 % (3-12); MONOCYTE COUNT 0.7 K/uL (0-0.8); RBC DIS.WIDTH-SD 53.2 % (39-53); WHITE BLOOD COUNT 11.8 K/uL (4.1-10.2)
[2017-12-09 12:06] LABS: HEMOGLOBIN 6.7 G/DL (11.9-15.5); PLATELET COUNT 91 K/uL (156-360)
[2017-12-09 12:07] LABS: CHLORIDE 112 mEq/L (99-109); POTASSIUM 3.3 mEq/L (3.7-5.4); SODIUM 139 mEq/L (136-147)
[2017-12-09 12:09] LABS: GLUCOSE 106 mg/dL (70-99)
[2017-12-09 12:13] LABS: CREATININE 3.9 mg/dL (0.6-1.3); GFR ESTIMATE (CALCULATED) 15 mL/min/
[2017-12-09 12:14] LABS: UREA NITROGEN (BUN) 92 mg/dL (9-23)
[2017-12-09] MEDS ORDERED: PREDNISONE20 MG PO ×2 (13:23)
[2017-12-09] MEDS ORDERED: TACROLIMUS ANHYD1 MG PO ×2 (13:24)
[2017-12-09] MEDS ORDERED: ACETAMINOPHEN325 M1 PO (13:25)
[2017-12-09 14:44] LABS: APPEARANCE SL.HAZY ((CLEAR)); BILIRUBIN NEGATIVE; BLOOD SMALL; COLOR YELLOW ((YELLOW)); GLUCOSE (STRIP) NEGATIVE; KETONES NEGATIVE; LEUKOCYTES LARGE; NITRITE NEGATIVE; PROTEIN (STRIP) 30; SPECIFIC GRAVITY 1.009 (1.000-1.030); UROBILINOGEN 0.2 MG/DL (0.2-1.0)
[2017-12-09 15:00] LABS: WHITE BLOOD CELLS 30-40 /HPF (0-5)
[2017-12-09 15:01] LABS: BACTERIA 1+ /HPF; EPITHELIAL CELLS RARE /HPF; MUCUS NONE SEEN /LPF; UCUL ADDED? YES
[2017-12-10 03:07] VITALS: BP 133/81
[2017-12-10 05:10] LABS: BASOPHIL (%) 0.1 % (0-1); EOSINOPHIL (%) 0.1 % (0-5); IMMATURE GRANULOCYTE (%) 1.7 % (0.0-0.7); LYMPHOCYTE COUNT 0.6 K/uL (1.0-2.8); MCH 28.8 PG (29.0-34.0); MCHC 33.3 G/DL (30.0-36.0); MCV 86.3 FL (83-99); MONOCYTE (%) 4.9 % (3-12); MONOCYTE COUNT 0.6 K/uL (0-0.8); NEUTROPHIL (%) 88.2 % (45-76); NEUTROPHIL COUNT 10.2 K/uL (1.8-6.4); PLATELET COUNT 74 K/uL (156-360); RBC DIS.WIDTH-CV 16.7 % (11.8-14.6); RBC DIS.WIDTH-SD 52.5 % (39-53); WHITE BLOOD COUNT 11.5 K/uL (4.1-10.2)
[2017-12-10 05:15] LABS: RED BLOOD COUNT 2.78 M/uL (3.80-5.20)
[2017-12-10 05:54] LABS: ALBUMIN 2.8 G/DL (3.2-4.8); ALKALINE PHOSPHATASE 31 IU/L (3-129); ALT (GPT) 11 IU/L (3-49); AST (GOT) 10 IU/L (2-34); CHLORIDE 116 MEQ/L (99-109); CREATININE 3.7 MG/DL (0.6-1.3); GFR ESTIMATE (CALCULATED) 16 mL/min/; GLUCOSE 129 mg/dL (70-99); SODIUM 140 MEQ/L (136-147); TOTAL BILIRUBIN 0.4 MG/DL (0.0-1.0); TOTAL PROTEIN 4.5 G/DL (6.4-8.3); UREA NITROGEN (BUN) 82 mg/dL (9-23)
[2017-12-10 06:01] LABS: POTASSIUM 4.1 MEQ/L (3.7-5.4)
[2017-12-10 08:19] VITALS: BP 165/106
[2017-12-10 15:50] VITALS: BP 142/86
[2017-12-10 21:00] VITALS: BP 139/93
[2017-12-11 05:40] LABS: BASOPHIL (%) 0.1 % (0-1); EOSINOPHIL (%) 0 % (0-5); HEMATOCRIT 22.7 % (36.0-46.0); HEMOGLOBIN 7.8 G/DL (11.9-15.5); IMMATURE GRANULOCYTE (%) 0.8 % (0.0-0.7); LYMPHOCYTE (%) 5.4 % (15-42); LYMPHOCYTE COUNT 0.5 K/uL (1.0-2.8); MCH 29.1 PG (29.0-34.0); MCHC 34.4 G/DL (30.0-36.0); MCV 84.7 FL (83-99); MONOCYTE COUNT 0.3 K/uL (0-0.8); NEUTROPHIL (%) 89.7 % (45-76); NEUTROPHIL COUNT 7.4 K/uL (1.8-6.4); PLATELET COUNT 76 K/uL (156-360); RBC DIS.WIDTH-CV 17.2 % (11.8-14.6); RBC DIS.WIDTH-SD 53.7 % (39-53); RED BLOOD COUNT 2.68 M/uL (3.80-5.20); WHITE BLOOD COUNT 8.3 K/uL (4.1-10.2)
[2017-12-11 06:16] LABS: CHLORIDE 108 MEQ/L (99-109); CREATININE 3.8 MG/DL (0.6-1.3); GFR ESTIMATE (CALCULATED) 16 mL/min/; GLUCOSE 139 mg/dL (70-99); MAGNESIUM 1.2 mg/dl (1.3-2.7); PHOSPHORUS 3.7 mg/dL (2.5-4.9); POTASSIUM 3.7 MEQ/L (3.7-5.4); SODIUM 140 MEQ/L (136-147); UREA NITROGEN (BUN) 75 mg/dL (9-23)
[2017-12-11 10:17] VITALS: BP 135/93
[2017-12-11 11:39] VITALS: BP 127/86
[2017-12-11 16:09] VITALS: BP 123/86
[2017-12-11 20:49] VITALS: BP 147/89
[2017-12-11 22:36] VITALS: BP 139/92
[2017-12-12 04:31] VITALS: BP 130/78
[2017-12-12 05:20] LABS: BASOPHIL (%) 0 % (0-1); EOSINOPHIL (%) 0.1 % (0-5); HEMATOCRIT 23.9 % (36.0-46.0); HEMOGLOBIN 8.1 G/DL (11.9-15.5); IMMATURE GRANULOCYTE (%) 1.7 % (0.0-0.7); LYMPHOCYTE (%) 5.7 % (15-42); LYMPHOCYTE COUNT 0.4 K/uL (1.0-2.8); MCHC 33.9 G/DL (30.0-36.0); MCV 85.7 FL (83-99); MONOCYTE (%) 4.9 % (3-12); MONOCYTE COUNT 0.3 K/uL (0-0.8); NEUTROPHIL (%) 87.6 % (45-76); NEUTROPHIL COUNT 6.1 K/uL (1.8-6.4); PLATELET COUNT 90 K/uL (156-360); RBC DIS.WIDTH-CV 17.1 % (11.8-14.6); RBC DIS.WIDTH-SD 53.4 % (39-53); RED BLOOD COUNT 2.79 M/uL (3.80-5.20)
[2017-12-12 05:58] LABS: CHLORIDE 106 MEQ/L (99-109); CREATININE 3.4 MG/DL (0.6-1.3); GFR ESTIMATE (CALCULATED) 18 mL/min/; GLUCOSE 135 mg/dL (70-99); POTASSIUM 3.3 MEQ/L (3.7-5.4); SODIUM 140 MEQ/L (136-147); UREA NITROGEN (BUN) 66 mg/dL (9-23)
[2017-12-12 07:02] VITALS: BP 129/86
[2017-12-12 11:15] VITALS: BP 139/96
[2017-12-12] MEDS ORDERED: MYCOPHENOLIC A180 MG PO (12:04)
[2017-12-12] MEDS ORDERED: AMLODIPINE BESYL5 MG PO (12:04)
== END 2017-12-12 13:42 | disposition home or self-care (01) | DRG 871 ==
LOC: EME 11:23 → 4EAST 12:40 → EDOF 12:40 → ENRESERV 12:41 → 4EAST 15:55 → ENPENDDIS 12-12 → 4EAST 12-12 13:42
PROVIDERS: Emergency Medicine; Hospitalist; Internal Medicine Nephrology
PROC: 30233N1 Transfusion of Nonautologous Red Blood Cells into Peripheral Vein, Percutaneous Approach (ICD-10-PCS; principal; 2017-12-09)
DX: A41.59 Other Gram-negative sepsis (principal); N18.4 Chronic kidney disease, stage 4 (severe); N39.0 Urinary tract infection, site not specified; E87.2 Acidosis; Z94.0 Kidney transplant status; N17.0 Acute kidney failure with tubular necrosis; D63.1 Anemia in chronic kidney disease; D69.6 Thrombocytopenia, unspecified; E87.6 Hypokalemia; E86.0 Dehydration; N92.0 Excessive and frequent menstruation with regular cycle; Z79.52 Long term (current) use of systemic steroids; B96.4 Proteus (mirabilis) (morganii) as the cause of diseases classified elsewhere
CPT/HCPCS: 71045; 80048; 80053; 80197 90; 81003; 83605; 83735; 84100; 85025; 86850; 86900; 86901; 86920; 87040; 87077; 87086; 87186; 87801; 93005; 93970; 99281; 99285; J0692; J0696; J0881; J2405; J3010; J3370; J7030; J7507; J7512; J7518; P9040

== ENCOUNTER 2018-01-21 04:15 | Inpatient (IN) | payer BC, OTHER ==
[~2018-01-21] VITALS: Ht 157.5 cm; Wt 62.5 kg
[~2018-01-21 04:15] MED LIST changes: +ACETAMINOPHEN325 M1 PO; +PREDNISONE10 MG PO
[2018-01-21 05:23] LABS: APPEARANCE CLEAR ((CLEAR)); BILIRUBIN NEGATIVE; BLOOD SMALL; COLOR STRAW ((YELLOW)); GLUCOSE (STRIP) NEGATIVE; KETONES NEGATIVE; LEUKOCYTES TRACE; NITRITE NEGATIVE; PROTEIN (STRIP) 30; SPECIFIC GRAVITY 1.011 (1.000-1.030); UROBILINOGEN 0.2 MG/DL (0.2-1.0)
[2018-01-21 05:35] LABS: BACTERIA RARE /HPF; EPITHELIAL CELLS RARE /HPF; MUCUS NONE SEEN /LPF; RED BLOOD CELLS 0-5 /HPF (0-5); UCUL ADDED? YES; WHITE BLOOD CELLS 15-20 /HPF (0-5)
[2018-01-21 05:37] LABS: ALBUMIN 4.1 g/dL (3.2-4.8)
[2018-01-21 05:38] LABS: CHLORIDE 114 mEq/L (99-109); SODIUM 139 mEq/L (136-147)
[2018-01-21 05:40] LABS: GLUCOSE 87 mg/dL (70-99); TOTAL PROTEIN 6.1 g/dL (6.4-8.3)
[2018-01-21 05:42] LABS: TOTAL BILIRUBIN 0.4 mg/dL (0.0-1.0)
[2018-01-21 05:43] LABS: ALKALINE PHOSPHATASE 38 IU/L (3-129)
[2018-01-21 05:44] LABS: CREATININE 4.7 mg/dL (0.6-1.3); GFR ESTIMATE (CALCULATED) 12 mL/min/
[2018-01-21 05:45] LABS: AST (GOT) 12 IU/L (2-34); UREA NITROGEN (BUN) 59 mg/dL (9-23)
[2018-01-21 05:46] LABS: ALT (GPT) 8 IU/L (3-49)
[2018-01-21 05:59] LABS: HEMATOCRIT 25.6 % (36.0-46.0); MCH 30.5 PG (29.0-34.0); MCHC 33.6 G/DL (30.0-36.0); MCV 90.8 FL (83-99); PLATELET COUNT 184 K/uL (156-360); RBC DIS.WIDTH-CV 16.1 % (11.8-14.6); RBC DIS.WIDTH-SD 53.4 % (39-53); WHITE BLOOD COUNT 6.7 K/uL (4.1-10.2)
[2018-01-21 06:03] LABS: HEMOGLOBIN 8.6 G/DL (11.9-15.5); RED BLOOD COUNT 2.82 M/uL (3.80-5.20)
[2018-01-21 07:12] LABS: CARBON DIOXIDE (BICARBONATE) 11.6 MEQ/L (20-31)
[2018-01-21] MEDS ORDERED: AMLODIPINE BESYL5 MG PO (07:20)
[2018-01-21 17:52] VITALS: BP 121/81
[2018-01-21 19:10] VITALS: BP 110/56
[2018-01-22 00:45] VITALS: BP 119/72
[2018-01-22 03:34] VITALS: BP 102/68
[2018-01-22 05:26] LABS: HEMATOCRIT 24.5 % (36.0-46.0); HEMOGLOBIN 8.1 G/DL (11.9-15.5); MCH 29.9 PG (29.0-34.0); MCHC 33.1 G/DL (30.0-36.0); MCV 90.4 FL (83-99); PLATELET COUNT 137 K/uL (156-360); RBC DIS.WIDTH-CV 16.3 % (11.8-14.6); RBC DIS.WIDTH-SD 53.4 % (39-53); RED BLOOD COUNT 2.71 M/uL (3.80-5.20); WHITE BLOOD COUNT 6.9 K/uL (4.1-10.2)
[2018-01-22 06:15] LABS: CHLORIDE 111 MEQ/L (99-109); CREATININE 4.7 MG/DL (0.6-1.3); GFR ESTIMATE (CALCULATED) 12 mL/min/; PHOSPHORUS 3.7 mg/dL (2.5-4.9); POTASSIUM 3.4 MEQ/L (3.7-5.4); SODIUM 139 MEQ/L (136-147); UREA NITROGEN (BUN) 44 mg/dL (9-23)
[2018-01-22 06:28] LABS: GLUCOSE 115 mg/dL (70-99)
[2018-01-22 08:18] VITALS: BP 116/66
[2018-01-22 11:10] VITALS: BP 119/77
[2018-01-22 13:47] LABS: C DIFF TOXIN NEGATIVE (NEGATIVE)
[2018-01-22 15:18] VITALS: BP 110/74
[2018-01-22 19:00] VITALS: BP 118/89
[2018-01-23] VITALS (9 sets, daily range): BP systolic 105–147; BP diastolic 58–90
[2018-01-23 05:33] LABS: BASOPHIL (%) 0.2 % (0-1); EOSINOPHIL (%) 0.4 % (0-5); HEMATOCRIT 21.5 % (36.0-46.0); HEMOGLOBIN 7.3 G/DL (11.9-15.5); IMMATURE GRANULOCYTE (%) 1.5 % (0.0-0.7); LYMPHOCYTE (%) 10.7 % (15-42); LYMPHOCYTE COUNT 0.5 K/uL (1.0-2.8); MCH 29.7 PG (29.0-34.0); MCV 87.4 FL (83-99); MONOCYTE (%) 14.7 % (3-12); MONOCYTE COUNT 0.7 K/uL (0-0.8); NEUTROPHIL (%) 72.5 % (45-76); NEUTROPHIL COUNT 3.5 K/uL (1.8-6.4); PLATELET COUNT 136 K/uL (156-360); RBC DIS.WIDTH-CV 15.9 % (11.8-14.6); RBC DIS.WIDTH-SD 50.5 % (39-53); RED BLOOD COUNT 2.46 M/uL (3.80-5.20); WHITE BLOOD COUNT 4.8 K/uL (4.1-10.2)
[2018-01-23 06:31] LABS: CHLORIDE 107 MEQ/L (99-109); CREATININE 4.7 MG/DL (0.6-1.3); GFR ESTIMATE (CALCULATED) 12 mL/min/; GLUCOSE 118 mg/dL (70-99); PHOSPHORUS 3.8 mg/dL (2.5-4.9); POTASSIUM 3.7 MEQ/L (3.7-5.4); SODIUM 138 MEQ/L (136-147); UREA NITROGEN (BUN) 45 mg/dL (9-23)
[2018-01-23 06:38] LABS: MAGNESIUM 1.8 mg/dl (1.3-2.7)
[2018-01-23 18:24] LABS: HEMATOCRIT 26.3 % (36.0-46.0); HEMOGLOBIN 9.1 G/DL (11.9-15.5); MCH 30.4 PG (29.0-34.0); MCHC 34.6 G/DL (30.0-36.0); PLATELET COUNT 165 K/uL (156-360); RBC DIS.WIDTH-CV 16.1 % (11.8-14.6); RBC DIS.WIDTH-SD 51.8 % (39-53); WHITE BLOOD COUNT 5.3 K/uL (4.1-10.2)
[2018-01-23 18:28] LABS: RED BLOOD COUNT 2.99 M/uL (3.80-5.20)
[2018-01-24] VITALS (8 sets, daily range): BP systolic 107–126; BP diastolic 64–80
[2018-01-24 05:38] LABS: HEMATOCRIT 25.1 % (36.0-46.0); HEMOGLOBIN 8.3 G/DL (11.9-15.5); MCH 29.2 PG (29.0-34.0); MCHC 33.1 G/DL (30.0-36.0); MCV 88.4 FL (83-99); PLATELET COUNT 162 K/uL (156-360); RBC DIS.WIDTH-CV 17.2 % (11.8-14.6); RBC DIS.WIDTH-SD 55.4 % (39-53); RED BLOOD COUNT 2.84 M/uL (3.80-5.20); WHITE BLOOD COUNT 4.6 K/uL (4.1-10.2)
[2018-01-24 06:04] LABS: CHLORIDE 107 MEQ/L (99-109); GFR ESTIMATE (CALCULATED) 12 mL/min/; GLUCOSE 96 mg/dL (70-99); POTASSIUM 4.1 MEQ/L (3.7-5.4); SODIUM 139 MEQ/L (136-147); UREA NITROGEN (BUN) 46 mg/dL (9-23)
[2018-01-25 05:55] LABS: BASOPHIL (%) 0.4 % (0-1); EOSINOPHIL (%) 1.5 % (0-5); EOSINOPHIL COUNT 0.1 K/uL (0-0.3); HEMATOCRIT 25.2 % (36.0-46.0); HEMOGLOBIN 8.4 G/DL (11.9-15.5); IMMATURE GRANULOCYTE (%) 1.1 % (0.0-0.7); LYMPHOCYTE (%) 20.3 % (15-42); LYMPHOCYTE COUNT 0.9 K/uL (1.0-2.8); MCH 29.9 PG (29.0-34.0); MCHC 33.3 G/DL (30.0-36.0); MCV 89.7 FL (83-99); MONOCYTE (%) 17.8 % (3-12); MONOCYTE COUNT 0.8 K/uL (0-0.8); NEUTROPHIL (%) 58.9 % (45-76); NEUTROPHIL COUNT 2.7 K/uL (1.8-6.4); PLATELET COUNT 163 K/uL (156-360); RBC DIS.WIDTH-SD 55.5 % (39-53); RED BLOOD COUNT 2.81 M/uL (3.80-5.20); RETIC HGB EQUIVALENT 27.1 (28-36); RETICULOCYTE COUNT 1.6 % (0.5-1.8); WHITE BLOOD COUNT 4.5 K/uL (4.1-10.2)
[2018-01-25 06:17] LABS: ALBUMIN 2.9 G/DL (3.2-4.8); CHLORIDE 109 MEQ/L (99-109); CREATININE 4.6 MG/DL (0.6-1.3); GFR ESTIMATE (CALCULATED) 13 mL/min/; GLUCOSE 86 mg/dL (70-99); PHOSPHORUS 3.3 mg/dL (2.5-4.9); POTASSIUM 4.1 MEQ/L (3.7-5.4); SODIUM 140 MEQ/L (136-147); UREA NITROGEN (BUN) 45 mg/dL (9-23)
[2018-01-25 07:20] VITALS: BP 144/96
[2018-01-25] MEDS ORDERED: CEFTIN500 MG PO (11:13)
== END 2018-01-25 12:40 | disposition home or self-care (01) | DRG 872 ==
LOC: EME 04:15 → EDOF 08:55 → 4EAST 08:55 → ENRESERV 09:04 → 4EAST 17:47 → ENRESERV 01-24 11:11 → 5EAST 01-24 12:26
PROVIDERS: Emergency Medicine; Family Medicine; Internal Medicine Nephrology; Student in an Organized Health Care Education/Training Program
PROC: 30233N1 Transfusion of Nonautologous Red Blood Cells into Peripheral Vein, Percutaneous Approach (ICD-10-PCS; principal; 2018-01-23)
DX: A41.9 Sepsis, unspecified organism (principal); R65.20 Severe sepsis without septic shock; E86.0 Dehydration; E87.2 Acidosis; E87.6 Hypokalemia; N18.5 Chronic kidney disease, stage 5; N17.9 Acute kidney failure, unspecified; T86.11 Kidney transplant rejection; B96.4 Proteus (mirabilis) (morganii) as the cause of diseases classified elsewhere; Y83.0 Surgical operation with transplant of whole organ as the cause of abnormal reaction of the patient, or of later complication, without mention of misadventure at the time of the procedure; D63.1 Anemia in chronic kidney disease; Z87.440 Personal history of urinary (tract) infections
CPT/HCPCS: 36415; 71046; 80048; 80053; 80069; 80197 90; 81003; 82570; 82803; 83540; 83605; 83735; 84100; 84156; 84466; 85025; 85027; 85046; 86850; 86900; 86901; 86920; 87040; 87077; 87086; 87186; 87493; 99281; 99285; J0692; J0696; J2405; J3370; J3475; J7030; J7070; J7507; J7512; J7518; P9040